=== PATIENT | male | born 1990 | race Caucasian/White ===

== ENCOUNTER → 2022-09-07 11:29 | Outpatient (CLI) | payer OTHER, SELFPAY ==
--- NOTE | 2022-09-07 | DI.MRI.S_ITS ---
PROCEDURE: MR HAND LT WO/W CON INDICATIONS: Mass on Left Index Finder TECHNIQUE: Noncontrast coronal T1 spin echo and STIR, sagittal T1 spin echo with fat saturation and STIR, axial T1 spin echo and T2 fast spin echo with fat saturation. After the administration of contrast, axial/sagittal/coronal T1 spin echo with fat saturation through the left hand. COMPARISON: None. FINDINGS: Image quality: Excellent. Bones: Fiducial marker is placed over volar aspect of 2nd digit at the level of 2nd proximal phalangeal shaft. The visualized bone marrow demonstrates normal signal on all sequences. The overlying cortex appears intact. No abnormal intraosseous enhancement. Soft tissues: 3-4 millimeter T2 hyperintense signal area over volar aspect of 2nd digit at the site of the marker is seen and is superficial to the flexor tendon of 2nd digit. No enhancement is seen in this area. No enhancing soft tissue mass is seen. The scanned muscles demonstrate normal overall bulk and internal signal. IMPRESSION: 1. Finding may represent a tiny 4 millimeter ganglion cyst over volar aspect of 2nd proximal phalangeal shaft superficial to the flexor tendon. 2. No enhancing soft tissue mass or peripherally enhancing abscess collection. 3. Flexor and extensor tendons are intact. 4. No marrow edema. No fracture or dislocation. No area of abnormal intraosseous enhancement. Dictated by: Elan Murray M.D. on 09/07/2022 at 13:17 Approved by: Elan Murray M.D. on 09/07/2022 at 13:36
== END ==
PROVIDERS: Referring Provider Orthopaedic Surgery; Visit Provider Orthopaedic Surgery
DX: R22.32 Localized swelling, mass and lump, left upper limb (principal)
CPT/HCPCS: 73220